=== PATIENT | male | born 1975 | race Caucasian/White ===

== ENCOUNTER → 2017-11-27 11:09 | Outpatient (CLI) | payer BC, OTHER ==
[~2017-11-27] VITALS: Ht 167.6 cm; Wt 76.4 kg
--- NOTE | ~2017-11-27 | HEMODYNAMI ---
PATIENT:JOSELYN OBANDO MEDICAL RECORD: [id number] : 75 LOCATION:[facility] ADMISSION DATE: 11/27/17 Generatedon:11/27/201713:32 Patient name: JOSELYN OBANDO Patient #: [id number] SSN: DO B: 1975 Date of study: 11/27/2017 Page: Of Hemodynamic Procedure Report Patient Data Patient Demographics Procedure consent was obtained First Name: JOSELYN Gender: Male Last Name: GISELLA : 1975 Middle Initial: ANDREZ Age: 42 year(s) Patient #: [id number] Race: Unknown Additional ID: [id number] Contact details Address: [place] [address] State: [place] City: [place] Zip code: [address] Past Medical History Allergies Allergen Reaction Date Comments Reported Other allergy 11/27/2017 SULFA Admission Admission Data Admission Date: 11/27/2017 Admission Time: 11:09 Weight (lbs.): 166 Weight (kg.): 75.3 Lab Results Lab Result Date: 11/27/2017 Lab Result Time: 0:00 Biochemistry Name Units Result Min Max BUN mg/dl 18 --(---*)-- 7 18 Creatinine mg/dl 1 --(--*-)-- 0.6 1.3 CBC Name Units Result Min Max Hemoglobin g/dl 14.9 --(-*--)-- 13.5 17.5 Procedure Procedure Types Cath Procedure Diagnostic Procedure C [facility] w/Coronaries Aortic Root Angiography Miscellaneous Procedures Moderate Sedation up to 15 minutes Procedure Description Procedure Date Procedure Date: 11/27/2017 Procedure Start Time: 13:08 Procedure End Time: 13:31 Procedure Staff Name Function Henok Nuñez MD Performing Physician Jose E Charles RN Nurse Lala Siu RT Monitor Jared Webster RT Scrub Procedure Data Cath Procedure Fluoroscopy Diagnostic fluoroscopy Total fluoroscopy Time: 3.1 time: 3.1 min min Diagnostic fluoroscopy Total fluoroscopy dose: 439 dose: 439 mGy mGy Contrast Material Contrast Material Type Amount (ml) Isovue 300 105 Entry Location Entry Primary Successful Side Size Upsize Upsize Entry Closure Sims ccessful Closure Location (Fr) 1 (Fr) 2 (Fr) Remarks Device Remarks Radial Right 6 Fr Mechanical artery Short Compression Femoral Right 5 Fr Exoseal artery Estimated blood loss: 5 ml Diagnostic catheters Device Type Used For End Catheter Placement DIAGNOSTIC Akbar 110cm Procedure 5Fr catheter ([id number]) MULTIPACK JL 4.0 5Fr Procedure catheter MULTIPACK 3DRC 5Fr Procedure catheter MULTIPACK Pigtail 5 Fr Procedure catheter Procedure Complications No complications Procedure Medications Medication Administration Route Dosage 0.9% NaCl I.V. 100 ml/hr Oxygen NC 2 l/min Heparin Flush Bag added to field 2 bags (1000units/500ml NS) Lidocaine 2% added to field 20 Radial Cocktail added to field 1 syringe (Verapomil 2mg/Nitro 400mcg/Heparin 1500units) Versed I.V. 2 mg Fentanyl I.V. 100 mcg Versed I.V. 2 mg Radial Cocktail I.A. 1 syringe (Verapomil 2mg/Nitro 400mcg/Heparin 1500units) Hemodynamics Rest HGB: 14.9 (g/dl) Heart Rate: 76 (bpm) Pressure Samples Time Site Value (mmHg) Purpose Heart Use Rate(bpm) 13:22 LV 132/2,18 Snapshot 88 13:23 AO 122/69(86) Pullback 94 13:23 LV 144/-1,28 Pullback 94 Gradients Valve Time Site 1 Site 2 Mean SEP/DFP Peak To Heart Use (mmHg) (sec/min) Peak Rate (mmHg) (bpm) Aortic 13:23 LV AO 17 23 22 94 144/-1,28 122/69(86) Calculations Valve P-P Mean Valve Index Valve Source Name Gradient Area Flow (cm2) Aortic 22 17 22 17 Snapshots Pre Cath Intra NCS Post Cath Vital Signs Time Heart Resp SPO2 etCO2 NIBP (mmHg) Rhythm Pain Sedation Rate (ipm) (%) (mmHg) Status Level (bpm) 13:01:40 71 14 98 33.4 117/66(84) NSR 0 (11) 10(A) , No pain 13:06:16 97 27 99 40.3 110/82(97) NSR 0 (11) 10(A) , No pain 13:10:51 98 14 93 0 124/74(96) NSR 0 (11) 9(A) , No pain 13:15:25 90 13 92 42.6 110/68(105) NSR 0 (11) 9(A) , No pain 13:20:00 88 15 92 43.3 123/66(87) NSR 0 (11) 9(A) , No pain 13:24:38 89 14 94 38.8 114/64(101) NSR 0 (11) 9(A) , No pain 13:29:13 87 16 90 41 115/77(88) NSR 0 (11) 9(A) , No pain Medications Time Medication Route Dose Verified Delivered Reason Notes Effectiveness by by 12:57:48 0.9% NaCl I.V. 100 Jose E Jose E Per ml/hr Araceli Charles physician RN RN 12:57:58 Oxygen NC 2 l/min Josee Jose E Per Araceli Charles physician RN RN 12:58:07 Heparin Flush added 2 bags Jose E Jose E used for Bag to Araceli Charles procedure (1000units/500ml RN RN NS) 12:58:19 Lidocaine 2% added 20ml Jose E Jose E for local to vial Lorigan Araceli anesthetic RN RN 13:01:14 Radial Cocktail added 1 Jose E Jose E used for (Verapomil to syringe Araceli Charles procedure 2mg/Nitro field SMITH RN 400mcg/Heparin 1500units) 13:04:21 Versed I.V. 2 mg Jose E Jose E for sedation Araceli Charles RN RN 13:04:35 Fentanyl I.V. 100 mcg Jose E Jose E for sedation Araceli Charles RN RN 13:09:03 Versed I.V. 2 mg Jose E Jose E for sedation Araceli Charles RN RN 13:10:14 Radial Cocktail I.A. 1 Jose E Henok for (Verapomil syringe Araceli garcia 2mg/Nitro RN 400mcg/Heparin 1500units) Procedure Log Time Note 12:29:12 Patient Weight : 166 lbs 12:30:23 Diagnostic Cath status Elective 12:30:26 Jose E Charles RN sent for patient. Start room use. 12:30:28 Time tracking: Regular hours 12:30:33 Plan of Care:Hemodynamics will remain stable., Cardiac rhythm will remain stable., Comfort level will be maintained., Respiratory function will remain adequate., Patient/ family verbilizes understanding of procedure., Procedure tolerated without complication., Recovers from procedure without complications.. 12:32:54 Lab Result : Hemoglobin 14.9 g/dl 12:32:54 Lab Result : Creatinine 1 mg/dl 12:32:54 Lab Result : BUN 18 mg/dl 12:35:40 H&P Date Dictated: 11/02/2017 Within 30 days and on chart., H&P Addendum completed by physician on day of procedure. (MUST COMPLETE FOR ALL OUTPATIENTS). 12:36:00 Patient allergic to Other allergySULFA 12:57:48 0.9% NaCl 100 ml/hr I.V. was administered by Jose E Charles RN; Per physician; 12:57:58 Oxygen 2 l/min NC was administered by Jose E Charles RN; Per physician; 12:58:07 Heparin Flush Bag (1000units/500ml NS) 2 bags added to field was administered by Jose E Charles RN; used for procedure; 12:58:19 Lidocaine 2% 20ml vial added to field was administered by Jose E Charles RN; for local anesthetic; 13:00:54 Vital chart was started 13:01:14 Radial Cocktail (Verapomil 2mg/Nitro 400mcg/Heparin 1500units) 1 syringe added to field was administered by Jose E Charles RN; used for procedure; 13:02:11 Patient received from Pre/Post Procedure Room to [facility] 1 Alert and oriented. Tansferred to table in Supine position. 13:02:13 Warm blankets applied, and ilana hugger turned on for patient comfort. 13:02:13 Correct patient and procedure confirmed by team. 13:02:15 Signed procedure consent form obtained from patient. 13:02:16 ECG and BP/O2 sat monitors applied to patient. 13:02:18 Baseline sample Acquired. 13:02:21 Rhythm: sinus rhythm 13:02:22 Full Disclosure recording started 13:02:24 Pre-procedure instructions explained to patient. 13:02:24 Pre-op teaching completed and patient verbalized understanding. 13:02:27 Family in patients room. 13:02:29 Patient NPO since Midnight. 13:02:30 Is the patient allergic to Iodine/contrast media? No. 13:02:32 Is patient on blood thinner?No 13:02:34 Patient diabetic? No. 13:02:37 Previous problem with sedation/anesthesia? No ? 13:02:38 Snore? Yes 13:02:39 Sleep apnea? No 13:02:41 Deviated septum? No 13:02:42 Opens mouth fully? Yes 13:02:47 Sticks out tongue? Yes 13:02:49 Airway obstruction? No ? 13:02:52 Dentures? No ? 13:02:56 Pre procedure: right dorsailis pedis pulse 2+ Normal; easily identifiable; not easily obliterated 13:02:58 Modified Ayaan's test Ulnar < 7 seconds 13:03:00 Patient pain scale 0/10 ?. 13:03:10 IV patent on arrival in left hand with 0.9% NaCl at O. 13:03:13 Lab results completed and on chart. 13:03:16 Right Radial & Right Groin area was prepped with chlora-prep and draped in sterile fashion 13:03:18 Alarms reviewed by R. N. 13:03:18 Sharps counted by scrub and verified by R.N. 13:03:20 --------ALL STOP TIME OUT------ 13:03:20 Final Timeout: patient, procedure, and site verified with staff and physician. All members of the team are in agreement. 13:03:22 Right Radial & Right Groin site verified by team. 13:03:24 Physical assessment completed. ASA score P 2 - A patient with mild systemic disease as per Henok Nuñez MD. 13:03:35 Sedation plan: IV Moderate Sedation Medication:Versed, Fentanyl 13:03:51 Use device set Radial Dx or PCI 13:03:52 ACIST Syringe (39852) opened to sterile field. 13:03:53 ACIST Hand Control (34486) opened to sterile field. 13:03:53 ACIST Manifold (25391) opened to sterile field. 13:03:54 Tegaderm 4 x 4 (1626W) opened to sterile field. 13:03:57 Medline Cath Pack ([id number]) opened to sterile field. 13:03:58 Bag Decanter (2002S) opened to sterile field. 13:03:59 SHEATH 6FR Slender ([id number]) opened to sterile field. 13:03:59 DIAGNOSTIC WIRE .035 260cm J wire (280330) opened to sterile field. 13:04:00 MBrace Wrist Support ([id number]) opened to sterile field. 13:04:01 NEEDLE Cook 21G 4cm Radial (U39659) opened to sterile field. 13:04:21 Versed 2 mg I.V. was administered by Jose E Charles RN; for sedation; 13:04:21 PERCUTANEOUS ENTRY 19GA needle opened to sterile field. 13:04:35 Fentanyl 100 mcg I.V. was administered by Jose E Charles RN; for sedation; 13:06:17 Zero performed for pressure channel P1 13:07:37 Zero performed for pressure channel P1 13:07:43 Zero performed for pressure channel P1 13:07:54 Procedure started. 13:07:57 Zero performed for pressure channel P1 13:08:15 Zero performed for pressure channel P1 13:08:19 Zero performed for pressure channel P1 13:08:33 Local anesthetic to right radial artery with Lidocaine 2% by Henok Nuñez MD.INITIAL ACCESS ONLY 13:09:03 Versed 2 mg I.V. was administered by Jose E Charles RN; for sedation; 13:09:25 Zero performed for pressure channel P1 13:09:45 A 6 Fr Short sheath was inserted into the Right Radial artery 13:10:14 Radial Cocktail (Verapomil 2mg/Nitro 400mcg/Heparin 1500units) 1 syringe I.A. was administered by Henok Nuñez MD; for vasodilation; 13:10:22 A DIAGNOSTIC Akbar 110cm 5Fr catheter ([id number]) was advanced over the wire and used for Procedure. 13:13:20 Catheter removed. 13:13:43 UNABLE TO PASS THROUGH AORTA 13:13:58 Use device set Femoral Dx 13:14:14 SHEATH 5FR Nitro (HDO355) opened to sterile field. 13:14:25 Local anesthetic to right femoral artery with Lidocaine 2% by Henok Nuñez MD.ADDITIONAL ACCESS 13:14:47 DIAGNOSTIC Multipack 5Fr catheter set ([id number]) opened to sterile field. 13:14:51 TR BAND Standard ([id number]) opened to sterile field. 13:14:58 PERCUTANEOUS ENTRY 19GA needle opened to sterile field. 13:16:24 A 5 Fr sheath was inserted into the Right Femoral artery 13:16:45 A MULTIPACK JL 4.0 5Fr catheter was advanced over the wire and used for Procedure. 13:17:48 LCA angiography performed. 13:18:33 Catheter removed. 13:19:29 A MULTIPACK 3DRC 5Fr catheter was advanced over the wire and used for Procedure. 13:20:23 RCA angiography performed. 13:20:35 Catheter removed. 13:21:01 A MULTIPACK Pigtail 5 Fr catheter was advanced over the wire and used for Procedure. 13:22:28 LV gram done using WATKINS 13::33 Injector settings: Ml/sec: 10, Volume: 20, 13:22:43 LV hemodynamics recorded. 13:23:09 EF : 60 % 13:23:22 Aortic Root visualized 13:23:29 Catheter removed. 13:23:36 EXOSEAL 5Fr (EX500) opened to sterile field. 13:23:47 Sheath removed intact; hemostasis achieved with Mechanical Compression to the Right Radial artery. 13:23:52 Sheath removed intact; hemostasis achieved with Exoseal to the Right Femoral artery. 13:26:25 Procedure ended.(Physican Out) 13:26:43 Fluoroscopy time 03.10 minutes. 13:26:47 Fluoroscopy dose: 439 mGy 13:26:47 Flurop Dose total: 439 13:27:13 Contrast amount:Isovue 300 105ml. 13:27:16 Sharps counted by scrub and verified by R.N. 13:27:19 TR band inflated with 9cc of air. 13:27:25 Post-op/insertion site Right Femoral artery dressed using a 4 x 4 and Tegaderm. 13:27:29 Post right femoral artery:stable, soft, clean and dry 13:27:33 Post procedure: right dorsailis pedis pulse 2+ Normal; easily identifiable; not easily obliterated. 13:27:37 Post-procedure physical assessment completed. ASA score P 2 - A patient with mild systemic disease as per Henok Nuñez MD. 13:27:40 Post procedure rhythm: unchanged. 13:27:44 Estimated blood loss: 5 ml 13:27:45 Post procedure instruction explained to patient.Patient verbalizes understanding. 13:27:46 Patient needs reinforcement of post procedure teaching. 13:28:43 Procedure type changed to Cath procedure, Diagnostic procedure, LHC, LHC w/Coronaries, Aortic Root Angiography, Miscellaneous Procedures, Moderate Sedation up to 15 minutes 13:29:45 Procedure and supply charges have been captured, reviewed, submitted and are correct. 13:29:48 Procedure Complication : No complications 13:31:12 Vital chart was stopped 13:31:12 See physician's report for complete and final results. 13:31:14 Report given to Pre/Post Procedure Room. 13:31:16 Patient transfered to Pre/Post Procedure Room with Bed. 13:31:19 Procedure ended. 13:31:19 Full Disclosure recording stopped 13:31:24 End room use (Document Last) Device Usage Item Name Manufacture Quantity Catalog Hospital Part Current Minima l Lot# / Number Charge Number Stock Stock Serial# Code ACIST Acist 1 53334 [id number] 613619 123295 20 Syringe Medical (24188) Systems Inc ACIST Hand Acist 1 87797 450223 431303 197817 5 Control Medical (26400) Systems Inc ACIST Acist 1 59517 577899 676115 729279 5 Manifold Medical (62032) Systems Inc Tegaderm 4 x 3M 1 1626W 486303 850213 070021 5 4 (1626W) Medline Cath Cardinal 1 [id number] 113287 18651 847694 5 [facility] ([id number]) Bag Decanter Microtek 1 2002S 775560 90049 228309 5 (2002S) Medical Inc. SHEATH 6FR Terumo 1 [id number] 066821 200673 155527 40 Slender ([id number]) DIAGNOSTIC St Billy 1 547569 970412 887304 740015 30 WIRE .035 260cm J wire (191326) MBrace Wrist Advanced 1 140-0250-00 394202 39170 145462 5 Support Vascular ([id number]) Dynamics NEEDLE Cook Cook Medical 1 Y42990 520060 750618 844711 5 21G 4cm Radial (L48031) PERCUTANEOUS Cook Medical 2 D38029 347768 947544 5 ENTRY 19GA needle DIAGNOSTIC Terumo 1 92-1377 185914 293214 190387 5 Akbar 110cm 5Fr catheter (333189) SHEATH 5FR Terumo 1 HCV717 469086 596109 987766 40 Nitro (CYD895) DIAGNOSTIC Cardinal 1 DA4065 930428 07642 611585 30 Multipack Health 5Fr catheter set (FW7101) TR BAND Terumo 1 [id number] 983395 958586 523249 40 Standard ([id number]) MULTIPACK JL Cardinal 1 580427 5 4.0 5Fr Health catheter MULTIPACK Cardinal 1 465822 5 3DRC 5Fr Health catheter MULTIPACK Cardinal 1 258727 5 Pigtail 5 Fr Health catheter EXOSEAL 5Fr Cardinal 1 EX500 415943 491129 397411 10 (EX500) Health Signature Audit [place] Stage Time Signature Unsigned Intra-Procedure 11/27/2017 Lala Siu 1:32:37 PM RT(R) Signatures Monitor : Lala Siu Signature : RT Date : Time : [address] [address]
[~2017-11-27 11:09] MED LIST: BAYER CHEWABLE81 MG PO; DEXILANT60 MG PO; ISOSORBIDE MONO30 M1 PO; LISINOPRIL-HCTZ1 T13 PO; MULTIPLE VITAMI1 TA1 PO; NEURONTIN 300300 MG PO; NITROSTAT0.4 MG SL; OSTEO BI-FLEX1 EAC1 PO; ZORVOLEX PO
[2017-11-27 11:42] LABS: BASOPHILS 0.3 % (0-2); EOSINOPHILS 1.2 % (0-7); HEMATOCRIT 41.7 % (42.0-54.0); HEMOGLOBIN 14.9 g/dL (13.5-17.5); IMMATURE GRANULOCYTES 0.3 % (0-5); LYMPHOCYTES 17.3 % (15-50); MCH 29.9 pg (26.0-34.0); MCHC 35.7 g/dL (31.0-37.0); MCV 83.6 fL (80.0-100.0); MEAN PLATELET VOLUME 10.2 fL (7.4-10.4); MONOCYTES 11.5 % (2-11); NEUTROPHILS 69.4 % (40-80); PLATELET COUNT 235 10x3/uL (130-400); RBC 4.99 10x6/uL (4.20-6.10); RDW 13.7 % (11.5-14.5); WBC 10.2 10x3/uL (4.8-10.8)
[2017-11-27 11:49] LABS: CALC OSMOLALITY 273 mosm/kg (275-300); CALCIUM 9.3 mg/dL (8.5-10.1); CARBON DIOXIDE 28.9 mmol/L (21.0-32.0); CHLORIDE - SERUM 101 mmol/L (98-107); GLUCOSE 92 mg/dL (74-106); POTASSIUM - SERUM 4.4 mmol/L (3.5-5.1); SODIUM 136 mmol/L (136-145); UREA NITROGEN 18 mg/dL (7-18); eGFR NON AFRICAN AMERICAN 87 mL/min (90-120)
[2017-11-27 11:52] VITALS: BP 127/77; Ht 167.6 cm; Wt 76.4 kg
== END | disposition home or self-care (01) ==
LOC: D.CATH 11:09
PROVIDERS: Internal Medicine Cardiovascular Disease
DX: R07.89 Other chest pain (principal); Z01.812 Encounter for preprocedural laboratory examination